=== PATIENT | female | born 1935 | race Caucasian/White ===

== ENCOUNTER 2017-12-15 06:29 | Emergency (ER) | payer MEDICARE, BC ==
[~2017-12-15] VITALS: Ht 160 cm; Wt 62.6 kg
[2017-12-15] MEDS ORDERED: ONDANSETRON HCL 4 MG/2 ML VIAL IV ONE (08:00)
[2017-12-15] MEDS ORDERED: NALBUPHINE HCL 10 MG/1ml INJECTION IV ONE (08:00)
[2017-12-15 08:43] VITALS: BP 157/65
== END 2017-12-15 09:40 | disposition home or self-care (01) ==
LOC: ER 06:32
DX: S86.911A Strain of unspecified muscle(s) and tendon(s) at lower leg level, right leg, initial encounter (principal); S76.011A Strain of muscle, fascia and tendon of right hip, initial encounter; W08.XXXA Fall from other furniture, initial encounter; Y93.84 Activity, sleeping; Y99.8 Other external cause status; Y92.89 Other specified places as the place of occurrence of the external cause
CPT/HCPCS: 73502; 73552; 73562; 73700; 96374; 96375; 99284; J2300; J2405